=== PATIENT | female | born 1990 | race Caucasian/White ===

== ENCOUNTER 2019-04-26 15:38 | Emergency (ER) | payer OTHER ==
[~2019-04-26] VITALS: Ht 175.3 cm; Wt 83.9 kg
== END 2019-04-26 17:20 | disposition home or self-care (01) ==
LOC: ER 15:38
DX: B34.9 Viral infection, unspecified (principal)

== ENCOUNTER 2019-11-05 19:36 | Emergency (ER) | payer OTHER ==
[~2019-11-05] VITALS: Ht 172.7 cm; Wt 89.4 kg
== END 2019-11-06 00:04 | disposition home or self-care (01) ==
LOC: ER 19:36
DX: O03.9 Complete or unspecified spontaneous abortion without complication (principal)